=== PATIENT | male | born 1960 | race African-American/Black ===

== ENCOUNTER 2024-01-16 17:05 | Inpatient (IN) | payer OTHER ==
[2024-01-16 17:38] VITALS: BMI 23.6
[2024-01-16] MEDS ORDERED: MAG HYDROX/AL HYDROX/SIMETH 30 ML UNIT-DOSE CUP PO PRN (18:55)
[2024-01-16] MEDS ORDERED: NICOTINE POLACRILEX 2 MG LOZENGE BC PRN (18:55)
[2024-01-16] MEDS ORDERED: DICYCLOMINE HCL 10 MG CAPSULE PO PRN (18:55)
[2024-01-16] MEDS ORDERED: NALOXONE HCL 0.4 MG/ML VIAL IM PRN (18:55)
[2024-01-16] MEDS ORDERED: MAGNESIUM HYDROX 2400MG/30ML ORAL SUSPENSION 30 ML CUP PO PRN (18:55)
[2024-01-16] MEDS ORDERED: guaiFENesin 600 MG TABLET.ER (FP) PO PRN (18:55)
[2024-01-16] MEDS ORDERED: BISMUTH SUBSALICYLATE 524 MG/30 ML PO PRN (18:55)
[2024-01-16] MEDS ORDERED: NICOTINE POLACRILEX 2 MG GUM BUC PRN (18:55)
[2024-01-16] MEDS ORDERED: DOCUSATE SODIUM 100 MG CAPSULE (FP) PO PRN (18:55)
[2024-01-16] MEDS ORDERED: LOPERAMIDE HCL 2 MG CAPSULE PO PRN (18:55)
[2024-01-16] MEDS ORDERED: BENZOCAINE/MENTHOL (CHLORASEPTIC ) LOZENGE MM PRN (18:55)
[2024-01-16] MEDS ORDERED: BENZONATATE 200 MG CAPSULE PO PRN (18:55)
[2024-01-16] MEDS ORDERED: IBUPROFEN 400 MG TABLET (FP) PO PRN (18:55)
[2024-01-16] MEDS ORDERED: POLYETHYLENE GLYCOL (HEALTHYLAX) 3350 17 GM PACKET PO PRN (18:55)
[2024-01-16] MEDS ORDERED: NALOXONE (NARCAN) HCL 4 MG/0.1 ML SPRAY NS PRN (18:55)
[2024-01-16] MEDS ORDERED: ACETAMINOPHEN 325 MG TABLET (FP) PO PRN (20:24)
[2024-01-16] MEDS: IBUPROFEN 600 MG TABLET (FP) PO PRN (21:07)
[2024-01-16] MEDS: THIAMINE 100 MG TABLET PO SCH (22:08)
[2024-01-16] MEDS: MELATONIN 5 MG TABLETS PO SCH (22:08)
[2024-01-16] MEDS: KETOCONAZOLE 2% CREAM - 60GM TUBE TP SCH (23:05)
[2024-01-16] MEDS: ACETAMINOPHEN 325 MG TABLET (FP) PO PRN (23:39)
[2024-01-16] MEDS: METHOCARBAMOL 500 MG TABLET PO PRN (23:50)
[2024-01-17] MEDS: HYDROCHLOROTHIAZIDE 25 MG TABLET (FP) PO SCH (09:20)
[2024-01-17] MEDS: TAMSULOSIN HCL 0.4 MG CAP PO SCH (09:20)
[2024-01-17] MEDS: PRENATAL VITAMINS W/ FOLIC ACID TABLET (FP) PO SCH (09:20)
[2024-01-17 12:27] LABS: POTASSIUM 4.5 mmol/L (3.5-5.1)
[2024-01-17 12:28] LABS: HEMATOCRIT 31.6 % (35.4-49); HEMOGLOBIN 10.7 GM/dL (11.7-16.9); MCH 30.7 pg (25.7-33.7); MEAN CELL VOLUME 90.4 fl (80-96); MEAN PLT VOLUME 8.4 fl (7.5-11.1); PLATELET COUNT 198 10^3/uL (134-434); RDW 15.2 % (11.9-15.9); WHITE BLOOD COUNT 3.9 K/mm3 (4.0-10.0)
[2024-01-17 12:34] LABS: CALCIUM 9.4 mg/dL (8.5-10.1)
[2024-01-17 12:35] LABS: ALBUMIN 3.6 g/dl (3.4-5.0); BLOOD UREA NITROGEN 14.6 mg/dL (7-18)
[2024-01-17 12:36] LABS: BILIRUBIN,TOTAL 1.1 mg/dL (0.2-1); TOT PROT 7.2 g/dl (6.4-8.2)
[2024-01-17 12:38] LABS: CREATININE 0.9 mg/dL (0.55-1.3)
[2024-01-18] MEDS: CLOTRIMAZOLE 1% CREAM TP PRN (10:13)
[2024-01-18] MEDS: hydrOXYzine PAMOATE 50 MG CAPSULE (FP) PO ONE (10:39)
[2024-01-18] MEDS ORDERED: hydrOXYzine PAMOATE 25 MG CAPSULE (FP) PO PRN (14:30)
[2024-01-18 20:47] VITALS: RESP 18
[2024-01-18] MEDS: ONDANSETRON *ODT* 4 MG TABLET SL PRN (21:12)
[2024-01-19] MEDS: NAPROXEN 500 MG TABLET PO SCH (11:12)
[2024-01-19 12:41] VITALS: BP 144/70; PULSE 69; TEMP 97.1
== END 2024-01-19 13:53 | disposition other institution (70) | DRG 897 ==
LOC: YASAS 17:05 → Y3N 19:03
PROVIDERS: ADMIT Allergy & Immunology; ATTEND Surgery
PROC: HZ2ZZZZ Detoxification Services for Substance Abuse Treatment (ICD-10-PCS; principal; 2024-01-16)
DX: F10.20 Alcohol dependence, uncomplicated (principal); Z59.01 Sheltered homelessness; F17.210 Nicotine dependence, cigarettes, uncomplicated; F31.9 Bipolar disorder, unspecified; F43.10 Post-traumatic stress disorder, unspecified; I25.10 Atherosclerotic heart disease of native coronary artery without angina pectoris; E11.9 Type 2 diabetes mellitus without complications; N40.0 Benign prostatic hyperplasia without lower urinary tract symptoms; M54.50 Low back pain, unspecified; G89.29 Other chronic pain; Z99.89 Dependence on other enabling machines and devices
CPT/HCPCS: 36415; 71045-TC-FY; 80053; 80305; 80307; 82962; 85027; 86780; 87811; 93005; 93010; Q0162

== ENCOUNTER 2024-01-19 13:49 | Inpatient (IN) | payer OTHER ==
[2024-01-19 14:12] VITALS: BP 105/62; PULSE 92; RESP 17; TEMP 97.7
== END 2024-01-19 16:10 | disposition home or self-care (01) | DRG 897 ==
LOC: YASAS 13:49 → Y3W 13:50
PROVIDERS: ADMIT Allergy & Immunology; ATTEND Psychiatry & Neurology Pain Medicine
DX: F10.20 Alcohol dependence, uncomplicated (principal); F17.210 Nicotine dependence, cigarettes, uncomplicated